=== PATIENT | female | born 1970 | race Caucasian/White ===

== ENCOUNTER → 2018-04-17 08:52 | Outpatient (CLI) | payer OTHER, SELFPAY ==
[2018-04-17 09:31] LABS: Add Manual Diff / Slide Review NO; Basophils Percent Auto 0.1 % (0-2); Hematocrit 44.4 % (36-46); Hemoglobin 15.2 g/dL (12.0-16.0); Mean Corpuscular HGB Conc 34.2 % (30-36); Mean Corpuscular Hemoglobin 29.9 PG (26-34); Mean Corpuscular Volume 87.6 fL (80-100); Monocytes Percent Auto 13.7 % (3-14); Neutrophils Absolute Auto 4000 /uL (3000-5900); Neutrophils Percent Auto 68.2 % (50-75); Platelet Count 266 X10^3/uL (150-400); Red Blood Cell Count 5.07 X10^6/uL (4.0-5.2); Red Cell Distribution Width 13.8 % (11.6-14.8); White Blood Cell Count 5.9 X10^3/uL (4.5-11.0)
[2018-04-17 09:47] LABS: Alanine Aminotransferase 36 IU/L (9-52); Albumin 4.4 g/dL (3.5-5.0); Albumin Globulin Ratio 1.5 (1.0-2.8); Alkaline Phosphatase 41 U/L (38-126); Aspartate Aminotransferase 25 IU/L (14-36); BUN Creatinine Ratio 27.1 (6-22); Bilirubin Total 0.7 mg/dL (0.2-1.3); Blood Urea Nitrogen 19 mg/dL (7-17); Calcium 9.4 mg/dL (8.4-10.2); Carbon Dioxide 28 mmol/L (22-32); Chloride 102 mmol/L (98-107); Cholesterol 205 mg/dL (140-199); Estimated Glomerular Filt Rate > 60.0 mL/min (>60); Globulin 2.9 g/dL (1.7-4.1); Glucose 102 mg/dL (70-100); HDL Cholesterol 68 mg/dL (40-60); HEMOLYSIS 20 (0-50); LDL Cholesterol Calculated 126 mg/dL (<100); Potassium 4.2 mmol/L (3.4-5.1); Sodium 140 mmol/L (137-145); Total Protein 7.3 g/dL (6.3-8.2); Triglycerides 54 mg/dL (35-150)
[2018-04-17 10:16] LABS: Ferritin 19.3 ng/mL (11.1-264)
[2018-04-17 10:46] LABS: Vitamin D 25 Hydroxy (D3) 55.1 ng/mL (30.0-100.0)
[2018-04-17 11:02] LABS: TSH w/ Reflex to FT4 < 0.02 uIU/mL (0.47-4.68)
[2018-04-17 11:29] LABS: Free T4, Direct Thyroxine 1.75 ng/dL (0.78-2.19)
[2018-04-17 13:02] LABS: Free T3, Triiodothyronine Free 4.56 pg/mL (2.77-5.27)
== END ==
PROVIDERS: PCP Internal Medicine; Visit Provider Internal Medicine
DX: Z00.00 Encounter for general adult medical examination without abnormal findings (principal); E03.9 Hypothyroidism, unspecified
CPT/HCPCS: 36415; 80053; 80061; 82306; 82728; 84439; 84443; 84481; 85025

== ENCOUNTER 2019-03-06 09:19 | Day surgery (SDC) | payer OTHER, SELFPAY ==
[2019-03-06 09:48] VITALS: BP 104/76; PULSE 69; RESP 16; TEMP 36.8; O2SAT 99; BMI 26.7
[2019-03-06] MEDS: SODIUM CHLORIDE 0.9% 1,000 ML 200 ML IV (10:01)
--- NOTE | 2019-03-06 10:07 | PM.HP.1 ---
History of Present Illness Date Patient Seen: 03/06/19 Time Patient Seen: 10:07 Chief complaint: [id number] Narrative: 48-year-old woman with family history of colon polyps presents for her 1st ever screening colonoscopy. No intestinal complaints, no family history of colon or rectal cancers. She does report her mother has had multiple colon polyps removed. No family history of IBD. She tolerated her prep well Patient History Family & Social History Social History: household members significant other Tobacco & Substance use: Smoking Status Never smoker Meds Home Medications Medication Instructions Recorded Confirmed Type loratadine [Claritin] 10 mg PO PRN #0 06/21/11 04/30/18 History CHOLECALCIFEROL (VITAMIN D3) 5,000 iu PO #0 10/06/11 04/30/18 History (VITAMIN D) Fluticasone Propionate (FLONASE) 1 spray INTRANASAL PRN #1 bot 11/24/11 04/30/18 Rx cetirizine 10 mg PO PRN #0 04/24/13 04/30/18 History ketoconazole 1 jules TOPICAL SEE INSTRUCTIONS 06/27/17 04/30/18 Rx #120 ml spironolactone [Aldactone] 50 mg PO BID #180 tab 06/27/17 04/30/18 Rx etonogestrel-ethinyl estradiol 1 vaginalrin VAG Q4W #3 each 05/01/18 Rx 0.12 mg -0.015 mg/24 hr vaginal ring citalopram [Celexa] 20 mg PO QDAY #90 tab 06/06/18 Rx levothyroxine 0.175 mg PO QAM #90 tab 06/06/18 Rx liothyronine [Cytomel] 5 mcg PO 0600 #90 tab 06/06/18 Rx Allergies Allergy/AdvReac Type Severity Reaction Status Date / Time clindamycin Allergy Intermediate HIVES Verified 03/06/19 10:02 sulfamethoxazole Allergy Intermediate HIVES Verified 03/06/19 10:02 [From Bactrim] tetracycline Allergy Mild SENSITIVE Verified 03/06/19 10:02 Review of Systems Constitutional Constitutional: Denies fever(s) Eyes Eyes: Denies bulging eyes ENT Ears, Nose, Mouth, and Throat: No lip swelling Cardiovascular Cardiovascular: Denies generalize swelling Respiratory Respiratory: Denies stridor Gastrointestinal Gastrointestinal: Denies coffee ground emesis Musculoskeletal Musculoskeletal: Denies loss of height Integumentary/Breasts Skin/Breast: Denies wounds Neurologic Neurologic: Denies abnormal speech and Denies confusion Psychiatric Psychiatric: Denies confusion Endocrine Endocrine: Denies deepening of the voice Hematologic/Lymphatic Hematologic/Lymphatic: Denies lymphadenopathy Allergic/Immunologic Allergic/Immunologic: Denies lip swelling Exam Vital Signs (past 8 hours): - 03/06/19 09:48 Temperature 98.2 F Pulse Rate 69 Respiratory Rate 16 Blood Pressure 104/76 Pulse Oximetry 99 Oxygen Delivery Method Room Air Const General: cooperative and healthy appearing Orientation: alert HENNJ Head: normal to inspection Nose: nares normal Mouth: oral mucosae normal and lip normal Eyes Eyelids: eyelids normal Conjunctivae: conjunctivae normal Sclera: sclerae normal Neck Neck: supple and other (No thyromegally) Chest Chest: other (LCTAB , regular respiratory effort) Cardio Rhythm: regular rhythm Heart Sounds: S1 normal, S2 normal, no gallops, no murmurs and no rubs GI Other: Abdomen soft nontender nondistended Skin General: no rashes or lesions noted Neuro General: alert and awake Psych Appearance: grossly normal Affect: normal affect Assessment & Plan Assessment & Plan narrative: 48-year-old woman presents for 1st ever screening colonoscopy -family history of colon polyps Risks and benefits discussed Risk including , perforation, hypoxia, missed lesions all discussed Patient ready to proceed All questions answered
[2019-03-06] MEDS: ONDANSETRON 4 MG/2 ML INJ IV (10:24)
[2019-03-06] MEDS: MIDAZOLAM 5 MG/5 ML VIAL IV (10:36)
[2019-03-06] MEDS: fentaNYL 250 MCG/5 ML INJ IV (10:37)
--- NOTE | 2019-03-06 10:55 | PM.OP.ENDO ---
Operative Date/Time/Diagnoses Date of procedure: 03/06/19 Time of procedure: 10:55 Post-op diagnosis: same Procedure & Clinicians Study performed: Complete screening colonoscopy Same procedure as scheduled: Yes Indications: 48-year-old woman with a family history of colon polyps presents for 1st ever screening colonoscopy Surgeon: Sushant Drew Procedure Notes SCOAP/Timeout: completed Procedure in detail: Patient was brought to the endoscopy suite, time-out was completed. She was sedated with a total of 7 mg of midazolam and 100 mcg of fentanyl over the course of her entire procedure. A digital rectal exam was performed there are no masses or polyps identified. 160 cm colonoscope was introduced through the anus and passed through the folds of the rectum and colon to the cecum. The cecum was identified with a prominent robinson's foot and obvious ileocecal valve. Both were photographed. The colonoscope was then slowly withdrawn over the entire course of the colon and rectum visualizing the mucosal surfaces. No lesions were identified. At the distal rectum the colonoscope was retroflexed. There were no lesions here as well. Prep was adequate Pt olerated the procedure well Scope withdrawal time: 16min Sedation minutes: 34 Impression: 1) normal screening colonoscopy 2. Family history of colon polyps Recommendations: Colonscopy in 5 years Plan for aftercare: PACU and then home Follow up: as needed Disposition: PACU
[2019-03-06 10:56] VITALS: BP 126/81; PULSE 64; RESP 13; TEMP 36.1; O2SAT 99
--- NOTE | 2019-03-06 11:00 | P.OP.ENDO_ITS ---
Operative Date/Time/Diagnoses Date of procedure: 03/06/19 Time of procedure: 10:55 Post-op diagnosis: same Procedure & Clinicians Study performed: Complete screening colonoscopy Same procedure as scheduled: Yes Indications: 48-year-old woman with a family history of colon polyps presents for 1st ever screening colonoscopy Surgeon: Sushant Drew Procedure Notes SCOAP/Timeout: completed Procedure in detail: Patient was brought to the endoscopy suite, time-out was completed. She was sedated with a total of 7 mg of midazolam and 100 mcg of fentanyl over the course of her entire procedure. A digital rectal exam was performed there are no masses or polyps identified. 160 cm colonoscope was introduced through the anus and passed through the folds of the rectum and colon to the cecum. The cecum was identified with a prominent assiniboine and sioux's foot and obvious ileocecal valve. Both were photographed. The colonoscope was then slowly withdrawn over the entire course of the colon and rectum visualizing the mucosal surfaces. No lesions were identified. At the distal rectum the colonoscope was retroflexed. There were no lesions here as well. Prep was adequate Pt olerated the procedure well Scope withdrawal time: 16min Sedation minutes: 34 Impression: 1) normal screening colonoscopy 2. Family history of colon polyps Recommendations: Colonscopy in 5 years Plan for aftercare: PACU and then home Follow up: as needed Disposition: PACU
[2019-03-06 11:01] VITALS: BP 113/75; PULSE 60; RESP 10; O2SAT 98
[2019-03-06 11:06] VITALS: BP 110/77; PULSE 60; RESP 15; TEMP 36.7; O2SAT 100
--- NOTE | 2019-03-06 11:09 | SUR.PHASEI ---
pt awake, alert, abdomen soft, tolerating oral juice, vss, pt to phase 2.
[2019-03-06 11:10] VITALS: BP 106/67; PULSE 62; RESP 15; TEMP 36.9; O2SAT 100
[2019-03-06 11:39] VITALS: BP 111/79; PULSE 63; RESP 15; TEMP 36.6; O2SAT 100
== END 2019-03-06 11:42 ==
LOC: ENDO 09:20
PROVIDERS: PCP Internal Medicine; Visit Provider Surgery
PROC: 0DJD8ZZ Inspection of Lower Intestinal Tract, Via Natural or Artificial Opening Endoscopic (ICD-10-PCS; CPT 45378; principal; 2019-03-06 10:45)
DX: Z12.11 Encounter for screening for malignant neoplasm of colon (principal)
CPT/HCPCS: 45378; 99152; 99153; J2250; J2405; J3010

== ENCOUNTER → 2019-06-09 07:37 | Outpatient (CLI) | payer OTHER, SELFPAY ==
--- NOTE | 2019-06-09 | DI.MG.S_ITS ---
BILATERAL DIGITAL SCREENING MAMMOGRAM 3D/2D WITH CAD: 06/09/2019 CLINICAL: Routine screening. Comparison is made to exams dated: 08/17/2017 mammogram, 07/07/2016 mammogram, 06/15/2015 mammogram, 06/06/2011 mammogram, 11/12/2012 mammogram, and 01/29/2014 mammogram - [facility]. There are scattered fibroglandular elements in both breasts. Current study was also evaluated with a Computer Aided Detection (CAD) system. There is a biopsy clip in the right breast. No significant masses, calcifications, or other findings are seen in either breast. There has been no significant interval change. IMPRESSION: NEGATIVE There is no mammographic evidence of malignancy. A 1 year screening mammogram is recommended. This exam was interpreted at Station ID: [id number]. NOTE: For mammograms, a report in lay terms will be sent to the patient. Approximately 15% of breast malignancies will not be visualized mammographically. In the management of a palpable breast mass, a negative mammogram must not discourage biopsy of a clinically suspicious lesion. Electronically Signed By: Mehul osborne/obdulio:06/09/2019 10:36:48 letter sent: Normal Exam ACR BI-RADS Category 1: Negative 3341F
== END ==
PROVIDERS: PCP Internal Medicine; Visit Provider Internal Medicine
DX: Z12.31 Encounter for screening mammogram for malignant neoplasm of breast (principal)
CPT/HCPCS: 77063; 77067

== ENCOUNTER → 2020-06-17 16:14 | Outpatient (CLI) | payer OTHER, SELFPAY ==
--- NOTE | 2020-06-17 16:15 | DI.MG.S_ITS ---
BILATERAL DIGITAL SCREENING MAMMOGRAM 3D/2D WITH CAD: 06/17/2020 CLINICAL: Routine screening. Comparison is made to exams dated: 06/09/2019 mammogram, 08/17/2017 mammogram, and 07/07/2016 mammogram - [facility]. There are scattered fibroglandular elements in both breasts. Current study was also evaluated with a Computer Aided Detection (CAD) system. There is a biopsy clip in the right breast. No significant masses, calcifications, or other findings are seen in either breast. There has been no significant interval change. IMPRESSION: NEGATIVE There is no mammographic evidence of malignancy. A 1 year screening mammogram is recommended. This exam was interpreted at Station ID: [id number]. NOTE: For mammograms, a report in lay terms will be sent to the patient. Approximately 15% of breast malignancies will not be visualized mammographically. In the management of a palpable breast mass, a negative mammogram must not discourage biopsy of a clinically suspicious lesion. Electronically Signed By: Eddie Drummond M.D., jr/obdulio:06/17/2020 17:15:40 letter sent: Normal Exam ACR BI-RADS Category 1: Negative 3341F
== END ==
PROVIDERS: PCP Internal Medicine; Referring Provider Internal Medicine; Visit Provider Internal Medicine
DX: Z12.31 Encounter for screening mammogram for malignant neoplasm of breast (principal)
CPT/HCPCS: 77063; 77067

== ENCOUNTER → 2022-08-14 15:50 | Outpatient (CLI) | payer BC, SELFPAY ==
--- NOTE | 2022-08-14 15:51 | DI.MG.S_ITS ---
BILATERAL DIGITAL SCREENING MAMMOGRAM 3D/2D WITH CAD: 08/14/2022 CLINICAL: Routine screening. Comparison is made to exams dated: 06/17/2020 mammogram, 06/09/2019 mammogram, and 08/17/2017 mammogram - [facility]. There are scattered areas of fibroglandular density in both breasts (category b / 25%-50% glandular tissue). Current study was also evaluated with a Computer Aided Detection (CAD) system. There is a developing oval equal density asymmetry with an obscured margin in the left breast anterior depth superior region seen on the mediolateral oblique view only. No other significant masses, calcifications, or other findings are seen in either breast. IMPRESSION: INCOMPLETE: NEEDS ADDITIONAL IMAGING EVALUATION The developing oval equal density asymmetry in the left breast is indeterminate. Additional views with possible ultrasound are recommended. Based on the Tyrer Cuzick model (a risk assessment model) the patient's lifetime risk is 6.8% and her 10 year risk is 1.9%. According to the ACR, ACS, and NCCN guidelines, an annual breast MRI exam along with mammogram is recommended if the patient's lifetime risk is 20% or greater. This exam was interpreted at Station ID: [id number]. NOTE: For mammograms, a report in lay terms will be sent to the patient. Approximately 15% of breast malignancies will not be visualized mammographically. In the management of a palpable breast mass, a negative mammogram must not discourage biopsy of a clinically suspicious lesion. Electronically Signed By: Kimi zhao/obdulio:08/15/2022 10:18:17 letter sent: Additional Imaging Needed ACR BI-RADS Category 0: Incomplete 3340F
== END ==
PROVIDERS: PCP Internal Medicine; Referring Provider Internal Medicine; Visit Provider Internal Medicine
DX: Z12.31 Encounter for screening mammogram for malignant neoplasm of breast (principal)
CPT/HCPCS: 77063; 77067

== ENCOUNTER → 2022-08-15 13:48 | Outpatient (CLI) | payer BC, SELFPAY ==
--- NOTE | 2022-08-15 | DI.MRI.S_ITS ---
PROCEDURE: MR LUMBAR SPINE WO CON INDICATIONS: Lumbago with sciatica, right side TECHNIQUE: Noncontrast sagittal T1 spin echo and T2 fast echo, sagittal STIR, and T2 fast spin echo through the lumbar spine. In cases with scoliosis, additional coronal T2 fast spin echo may be performed. COMPARISON: None. FINDINGS: Image quality: Excellent. Alignment and Curvature: There is normal bony alignment. Bone Marrow: Marrow is of normal overall signal. There is a focus of decreased T1 and T2 signal in the L4 vertebral body. No priors are available for comparison. No acute vertebral body compression fractures. Spinal Cord: Conus medullaris terminates at the L1 level. Visualized cord demonstrates normal signal and size. Paraspinous Soft Tissues: No paravertebral masses. Discs: Mild desiccation is present throughout the lumbar spine most notable at L4-5. L1-L2: Mild disc bulge with minimal spinal stenosis. No foraminal narrowing. Facet and ligamentum flavum hypertrophy are present. L2-L3: Mild disc bulge with minimal spinal stenosis. No foraminal narrowing. Facet and ligamentum flavum hypertrophy are present. L3-L4: Mild disc bulge with mild spinal stenosis. Minimal to mild bilateral foraminal narrowing, left greater than right with facet and ligamentum flavum hypertrophy. L4-L5: Mild disc bulge with moderate spinal stenosis. Minimal left foraminal narrowing with facet and ligamentum flavum hypertrophy. L5-S1: Mild disc bulge without spinal stenosis or foraminal narrowing. IMPRESSION: Multilevel disc bulges. Moderate spinal stenosis at L4-5 secondary to disc bulge with contributing effect of facet/ligamentum flavum arthropathy. Focus of decreased T1 and T2 signal at the L4 vertebral body overall nonspecific. This could be a lipid poor hemangioma. However, no priors are available for comparison and it is indeterminate on the basis of this exam. Further evaluation with contrast MRI or bone scan/lumbar spine x-ray may be obtained for further evaluation. Dictated by: Sharon Pate M.D. on 08/16/2022 at 17:16 Approved by: Sharon Pate M.D. on 08/16/2022 at 17:20
== END ==
PROVIDERS: PCP Internal Medicine; Referring Provider Internal Medicine; Visit Provider Internal Medicine
DX: M51.16 Intervertebral disc disorders with radiculopathy, lumbar region (principal); M48.061 Spinal stenosis, lumbar region without neurogenic claudication; M47.26 Other spondylosis with radiculopathy, lumbar region
CPT/HCPCS: 72148

== ENCOUNTER → 2022-09-11 13:30 | Outpatient (CLI) | payer BC, SELFPAY ==
--- NOTE | 2022-09-11 13:31 | DI.MG.S_ITS ---
UNILATERAL LEFT DIGITAL DIAGNOSTIC MAMMOGRAM 3D/2D WITH ADDITIONAL VIEWS: 09/11/2022 CLINICAL: Additional evaluation requested from prior study. Comparison is made to exams dated: 08/14/2022 mammogram, 06/17/2020 mammogram, 06/09/2019 mammogram, and 08/17/2017 mammogram - [facility]. There are scattered areas of fibroglandular density in the left breast (category b / 25%-50% glandular tissue). There also is a possible asymmetry in the left breast anterior depth superior region seen on the mediolateral oblique view only. This is less prominent. No other significant masses or calcifications are seen in the breast. IMPRESSION: INCOMPLETE: NEEDS ADDITIONAL IMAGING EVALUATION The possible asymmetry in the left breast anterior depth superior region is indeterminate. A targeted ultrasound is recommended and will immediately follow. Based on the Tyrer Cuzick model (a risk assessment model) the patient's lifetime risk is 6.8% and her 10 year risk is 1.9%. According to the ACR, ACS, and NCCN guidelines, an annual breast MRI exam along with mammogram is recommended if the patient's lifetime risk is 20% or greater. This exam was interpreted at Station ID: [id number]. NOTE: For mammograms, a report in lay terms will be sent to the patient. Approximately 15% of breast malignancies will not be visualized mammographically. In the management of a palpable breast mass, a negative mammogram must not discourage biopsy of a clinically suspicious lesion. Electronically Signed By: Mehul Valdez M.D. slc/:09/11/2022 14:20:55 ACR BI-RADS Category 0: Incomplete 3340F
--- NOTE | 2022-09-11 13:32 | DI.US.S_ITS ---
LIMITED ULTRASOUND OF LEFT BREAST: 09/11/2022 CLINICAL: Patient returns today to evaluate a focal asymmetry in the left breast. Comparison is made to exams dated: 09/11/2022 mammogram, 08/14/2022 mammogram, 06/17/2020 mammogram, 06/09/2019 mammogram, 08/17/2017 mammogram, and 02/20/[address] [facility]. Color flow and real-time ultrasound of the left breast were performed. Grajeda scale images of the real-time examination were reviewed. There is a 0.4 cm simple cyst in the left breast central to the nipple in the retroareolar region 1 cm from the nipple. This correlates as an incidental finding. There also is a 0.6 cm x 0.5 cm x 0.3 cm oval cyst in the left breast at 12 o'clock anterior depth 2 cm from the nipple. This oval cyst displays internal echoes. This correlates with mammography findings. Color flow imaging demonstrates that there is no vascularity present. IMPRESSION: BENIGN There is no sonographic evidence of malignancy. The 0.4 cm simple cyst in the left breast central to the nipple in the retroareolar region is benign. The 0.6 cm circumscribed cyst in the left breast at 12 o'clock anterior depth is benign. A 1 year screening mammogram is recommended. Exam findings were conveyed to the patient. This exam was interpreted at Station ID: [id number]. Electronically Signed By: Mehul Valdez M.D. slc/:09/11/2022 14:48:07 letter sent: Normal Exam Ultrasound BI-RADS: 2 Benign
== END ==
PROVIDERS: PCP Internal Medicine; Referring Provider Internal Medicine; Visit Provider Internal Medicine
DX: R92.8 Other abnormal and inconclusive findings on diagnostic imaging of breast (principal); N60.02 Solitary cyst of left breast
CPT/HCPCS: 76642; 77065; G0279

== ENCOUNTER → 2022-09-18 09:15 | Outpatient (CLI) | payer BC, SELFPAY ==
--- NOTE | 2022-09-18 | DI.NM.S_ITS ---
PROCEDURE: NM BONE SCAN WHOLE BODY RADIOPHARMACEUTICAL: 21.8 mCi Tc-99m MDP IV. INDICATIONS: Hemangioma of other sites TECHNIQUE: Delayed whole-body scintigrams were obtained approximately 3-4 hours after intravenous injection of radiotracer. Anterior and posterior views were acquired from vertex to feet. Additional left and right oblique views of the thoracic and lumbar spine were obtained. COMPARISON: [facility], MR, MR LUMBAR SPINE WO CON, 08/15/2022, 14:04. FINDINGS: No lesions are identified in skull, sternum, clavicles, scapulae, ribs, bony pelvis, and visualized shafts of the long bones. There are foci of increased uptake in cervical, thoracic and lumbar spine most likely secondary to degenerative disc and facet disease; early metastasis to spine could be obscured by degenerative changes. There are foci of increased periarticular activity involving shoulders and hips, compatible with degenerative/arthritic changes. IMPRESSION: 1. No abnormalities in lumbar spine to correlate with findings on MRI. 2. Degenerative changes in spine. 3. Degenerative/arthritic changes in shoulders and hips. Dictated by: Rylan Amaya M.D. on 09/18/2022 at 13:31 Approved by: Rylan Amaya M.D. on 09/18/2022 at 13:57
== END ==
PROVIDERS: PCP Internal Medicine; Referring Provider Internal Medicine; Visit Provider Internal Medicine
DX: D18.09 Hemangioma of other sites (principal); M47.9 Spondylosis, unspecified
CPT/HCPCS: 78306; A9503

== ENCOUNTER → 2022-10-19 14:43 | Outpatient (CLI) | payer BC, SELFPAY ==
--- NOTE | 2022-10-19 14:44 | DI.RAD.S_ITS ---
PROCEDURE: XR LUMBAR SPINE MIN 4V INDICATIONS: BACK PAIN TECHNIQUE: 5 views of the lumbar spine were acquired, including bilateral oblique views. COMPARISON: None. FINDINGS: Bones: 5 nonrib-bearing vertebrae are present. There is normal bony alignment. Degenerative endplate changes are noted throughout lumbar spine most notably at L4-5 and L3-4 levels. No vertebral body compression fractures. No suspicious bony lesions. Soft tissues: Overlying bowel gas pattern is normal. No suspicious soft tissue calcifications. Oblique images: No pars defects. IMPRESSION: Degenerative disc disease throughout lumbar spine. No acute compression fracture or significant spondylolisthesis. No gross pars defects. Dictated by: Haresh Eller M.D. on 10/19/2022 at 15:23 Approved by: Haresh Eller M.D. on 10/19/2022 at 15:24
== END ==
PROVIDERS: PCP Internal Medicine; Referring Provider Physical Medicine & Rehabilitation; Visit Provider Physical Medicine & Rehabilitation
DX: M54.9 Dorsalgia, unspecified (principal); M51.36 Other intervertebral disc degeneration, lumbar region
CPT/HCPCS: 72110

== ENCOUNTER 2023-11-29 10:40 | Day surgery (SDC) | payer BC, SELFPAY ==
[2023-11-29 10:57] VITALS: BP 115/75; PULSE 77; RESP 16; TEMP 36.6; O2SAT 98
--- NOTE | 2023-11-29 11:04 | PM.HP.1 ---
History of Present Illness History of Present Illness Date Patient Seen: 11/29/23 Time Patient Seen: 11:05 Chief complaint: SDC Narrative: Lucia is a 53 year old woman who is here for a colonoscopy. Her last was in 2019 and was normal. She has no family history of colon cancer in a first-degree relative. [facility] Medical History (Updated 11/29/23 @ 11:06 by Evan Valladares MD) Chronic thoracic back pain Facet arthropathy, lumbar Excessive daytime sleepiness Seasonal allergies Chronic back pain (~2005) Vertigo (~2009) Hemorrhoid Mumps (~1968) Measles (~1968) Herpes (~1994) Chicken pox (~1990) Frequent UTI (~1987) Athlete's foot Eczema Acne Hypothyroidism Hyperthyroidism (~2006) Graves disease (~2006) Depression (~1985) Anxiety (~1985) Anemia Irregular menstrual cycle (~2014) Surgical History Anesthesia Status post delivery (~2005) Status post delivery (~2007) History of thyroidectomy (~2007) Family History Brother Age: 52 Mental health problem Autism Bipolar disorder Father Age: 85 Hypertension High cholesterol Bipolar disorder Prostate cancer Skin cancer Heart disease Grandmother Heart disease Stroke Grandfather Heart disease Grandmother Mental health problem Grandfather Cancer Mother Chronic fatigue Chronic pain Son Depression Son Autism ADHD Anxiety Social History household members: significant other Smoking Status: Never smoker alcohol intake: current Meds Home Medications and Allergies Home Medications Medication Instructions Recorded Confirmed Type loratadine 10 mg tablet (Claritin) 10 mg PO PRN ##0 06/21/11 10/25/22 History CHOLECALCIFEROL (VITAMIN D3) 5,000 iu PO DAILY ##0 10/06/11 10/25/22 History (VITAMIN D) Fluticasone Propionate (FLONASE) 1 spray intranasal PRN ##1 11/24/11 09/12/22 Rx cetirizine 10 mg tablet 10 mg PO PRN ##0 04/24/13 11/29/23 History ketoconazole 2 % shampoo 1 jules topical SEE INSTRUCTIONS 06/27/17 10/25/22 Rx #120 mL etonogestrel 0.12 mg-ethinyl 1 vaginalrin vaginal Q4W #3 ea 05/01/18 11/29/23 Rx estradiol 0.015 mg/24 hr vaginal ring (NuvaRing) liothyronine 5 mcg tablet (Cytomel) 5 mcg PO 0600 #90 tabs 06/06/18 11/29/23 Rx cholecalciferol (vitamin D3) 125 125 mcg PO DAILY 10/25/22 10/25/22 History mcg (5,000 unit) capsule citalopram 40 mg tablet 40 mg PO DAILY 10/25/22 11/29/23 History levothyroxine 125 mcg tablet 125 mcg PO DAILY 10/25/22 11/29/23 History melatonin 10 mg tablet 20 mg PO DAILY 10/25/22 10/25/22 History sodium,potassium,mag sulfates 17.5 See Rx Instructions PO .COMPLEX 09/10/23 Rx gram-3.13 gram-1.6 gram oral soln #354 mL (Suprep Bowel Prep Kit) Allergies Allergy/AdvReac Type Severity Reaction Status Date / Time clindamycin Allergy Intermediate HIVES Verified 11/29/23 10:50 sulfamethoxazole Allergy Intermediate HIVES Verified 11/29/23 10:50 [From Bactrim] tetracycline Allergy Mild SENSITIVE Verified 11/29/23 10:50 Exam Vital Signs (past 8 hours): - 11/29/23 10:57 Temperature 98 F Pulse Rate 77 Respiratory Rate 16 Blood Pressure 115/75 Pulse Oximetry 98 Oxygen Delivery Method Room Air Oxygen Delivery Method Room Air Const General: No acute distress Resp Effort & Inspection: normal respiratory effort Assessment & Plan Assessment and plan (1) Colon cancer screening: Status: Acute Plan We reviewed the risks and benefits of colonoscopy for colon cancer screening and she would like to proceed.
--- NOTE | 2023-11-29 11:45 | PM.OP.COLON ---
Operative Date/Time/Diagnoses Date of procedure: 11/29/23 Time of procedure: 11:45 Pre-op diagnosis: Colon cancer screening Post-op diagnosis: same Procedure & Clinicians Study performed: Colonoscopy Same procedure as scheduled: Yes Surgeon: Evan Valladares Procedure Notes Procedure in detail: Surgeon: Evan Valladares MD Anesthesia: Jae Falk DO Procedure: The patient was brought to the endoscopy suite, placed in left lateral decubitus position. The patient was connected to monitoring devices. A time-out was performed. Sedation was administered. Once the patient was adequately sedated, a digital rectal exam was performed and was normal. The scope was then inserted and advanced to the cecum where the appendiceal orifice was identified and photographed. The scope was then slowly withdrawn over greater than 6 minutes. The mucosa was thoroughly inspected. No abnormalities were found. The scope was retroflexed in the rectum. No other abnormalities were seen. The scope was straightened and removed. The patient was awakened and brought to recovery. Scope withdrawal time: 10 minutes Sedation time: 12 minutes EBL: 0 Findings: Normal colon Post-procedure Recommendations: Colonoscopy in 10 years Disposition: PACU
[2023-11-29 11:50] VITALS: BP 113/71; PULSE 76; RESP 16; TEMP 36.3; O2SAT 100
[2023-11-29 11:54] VITALS: BP 113/71; PULSE 74; RESP 16; O2SAT 98
== END 2023-11-29 12:08 | disposition home or self-care (01) ==
PROVIDERS: PCP Internal Medicine; Referring Provider Surgery; Visit Provider Surgery
PROC: 0DJD8ZZ Inspection of Lower Intestinal Tract, Via Natural or Artificial Opening Endoscopic (ICD-10-PCS; CPT 45378; principal; 2023-11-29 11:30)
DX: Z12.11 Encounter for screening for malignant neoplasm of colon (principal)
CPT/HCPCS: 45378

== ENCOUNTER → 2024-04-01 12:58 | Outpatient (CLI) | payer BC, SELFPAY ==
[2024-04-01 13:53] LABS: Add Manual Diff / Slide Review NO; Basophils Absolute Auto 0 /uL (0-100); Basophils Percent Auto 0.1 % (0-2); Eosinophils Absolute Auto 0 /uL (0-450); Hematocrit 42.2 % (36-46); Hemoglobin 14.5 g/dL (12.0-16.0); Lymphocytes Absolute Auto 2100 /uL (1100-4500); Lymphocytes Percent Auto 24.6 % (25-40); Mean Corpuscular HGB Conc 34.3 % (30-36); Mean Corpuscular Hemoglobin 28.7 PG (26-34); Mean Corpuscular Volume 83.7 fL (80-100); Monocytes Absolute Auto 1300 /uL (0-900); Monocytes Percent Auto 15.3 % (3-14); Neutrophils Absolute Auto 5000 /uL (1500-7000); Platelet Count 259 X10^3/uL (150-400); Red Blood Cell Count 5.05 X10^6/uL (4.0-5.2); Red Cell Distribution Width 13.4 % (11.6-14.8); White Blood Cell Count 8.4 X10^3/uL (4.5-11.0)
[2024-04-01 14:10] LABS: Alanine Aminotransferase 15 IU/L (<35); Albumin 4.3 g/dL (3.5-5.0); Albumin Globulin Ratio 1.4 (1.0-2.8); Alkaline Phosphatase 65 U/L (38-126); Aspartate Aminotransferase 20 IU/L (14-36); BUN Creatinine Ratio 15.7 (6-22); Bilirubin Total 0.5 mg/dL (0.2-1.3); Blood Urea Nitrogen 14 mg/dL (7-17); Calcium 9.3 mg/dL (8.4-10.2); Carbon Dioxide 26 mmol/L (22-32); Chloride 104 mmol/L (98-107); Estimated Glomerular Filt Rate > 60 mL/min (>60); Glucose 120 mg/dL (70-100); HEMOLYSIS < 15 (0-50); Potassium 4.6 mmol/L (3.4-5.1); Sodium 136 mmol/L (137-145); Total Protein 7.3 g/dL (6.3-8.2)
== END ==
LOC: LAB 13:00
PROVIDERS: PCP Internal Medicine; Referring Provider Internal Medicine; Visit Provider Internal Medicine
DX: E78.5 Hyperlipidemia, unspecified (principal); E03.9 Hypothyroidism, unspecified
CPT/HCPCS: 36415; 80053; 85025

== ENCOUNTER → 2024-05-21 14:22 | Outpatient (CLI) | payer BC, SELFPAY ==
--- NOTE | 2024-05-21 14:23 | DI.MG.S_ITS ---
BILATERAL DIGITAL SCREENING MAMMOGRAM 3D/2D WITH CAD: 05/21/2024 CLINICAL: Routine screening. Comparison is made to exams dated: 08/14/2022 mammogram, 06/17/2020 mammogram, and 06/09/2019 mammogram - [facility]. There are scattered areas of fibroglandular density in both breasts (category b / 25%-50% glandular tissue). Current study was also evaluated with a Computer Aided Detection (CAD) system. There is a biopsy clip in the right breast. No significant masses, calcifications, or other findings are seen in either breast. There has been no significant interval change. IMPRESSION: BENIGN There is no mammographic evidence of malignancy. A 1 year screening mammogram is recommended. Based on the Tyrer Cuzick model (a risk assessment model) the patient's lifetime risk is 10.7% and her 10 year risk is 3.5%. According to the ACR, ACS, and NCCN guidelines, an annual breast MRI exam along with mammogram is recommended if the patient's lifetime risk is 20% or greater. This exam was interpreted at Station ID: [id number]. NOTE: For mammograms, a report in lay terms will be sent to the patient. Approximately 15% of breast malignancies will not be visualized mammographically. In the management of a palpable breast mass, a negative mammogram must not discourage biopsy of a clinically suspicious lesion. Electronically Signed By: Rhianna Alvarado M.D., Ph.D. petar/obdulio:05/22/2024 17:07:23 letter sent: Normal Exam ACR BI-RADS Category 2: Benign Finding(s) 3342F
== END ==
PROVIDERS: PCP Internal Medicine; Referring Provider Internal Medicine; Visit Provider Internal Medicine
DX: Z12.31 Encounter for screening mammogram for malignant neoplasm of breast (principal); R92.323 Mammographic fibroglandular density, bilateral breasts
CPT/HCPCS: 77063; 77067

== ENCOUNTER → 2025-03-06 12:12 | Outpatient (CLI) | payer BC, SELFPAY ==
--- NOTE | 2025-03-06 12:13 | DI.RAD.S_ITS ---
PROCEDURE: XR DEXA AXIAL SKELETON INDICATIONS: Osteoporosis screening COMPARISON: None. FINDINGS: Lumbar Spine: Bone mineral density 1.307 g/cm2, T score 2.4. Left Femoral Neck: Bone mineral density 0.933 g/cm2, T score 0.8. Left Hip: Bone mineral density 1.090 g/cm2, T score 1.2. Fracture Risk Calculation (when applicable): 10-year fracture risk of a major osteoporotic fracture 4.9 percent and of a hip fracture 0.1 percent. (T score greater or equal to -1.0 to: NORMAL) (T score from -1.1 to -2.4: OSTEOPENIA) (T score less than or equal to -2.5: OSTEOPOROSIS) IMPRESSION: Normal--- recommend repeat DEXA as clinically indicated. Follow-up guidelines as follows: Osteoporosis: Consider a repeat DEXA and Vertebral Fracture Assessment (VFA) exam in 2 years or sooner if medically necessary, to reassess this patient's status. Osteopenia: Consider a repeat DEXA in 2-3 years to reassess this patient's status, or if there is a new clinical indication. Normal: Consider a repeat DEXA in 5 years or sooner, or if there is a new clinical indication. All treatment decisions require clinical judgment and consideration of individual patient factors, including patient preferences, comorbidities, previous drug use, risk factors not captured in the FRAX model (e.g., frailty, falls, vitamin D deficiency, increased bone turnover, interval significant decline in bone density ) and possible under- or over-estimation of fracture risk by FRAX. In addition, the NOF Guide recommends that FDA-approved medical therapies be considered in postmenopausal women and men age >= 50 years with a: * Hip or vertebral (clinical or morphometric) fracture * T-score of <=-2.5 at the spine or hip * Ten-year fracture probability by FRAX of >= 3% for hip fracture or >=20% for major osteoporotic fracture. Dictated by: Gasper Farley M.D. on 03/06/2025 at 18:47 Approved by: Gasper Farley M.D. on 03/06/2025 at 19:04
== END ==
LOC: RAD 12:12
PROVIDERS: PCP Registered Nurse; Referring Provider Registered Nurse; Visit Provider Registered Nurse
DX: Z13.820 Encounter for screening for osteoporosis (principal); Z78.0 Asymptomatic menopausal state
CPT/HCPCS: 77080

== ENCOUNTER → 2025-07-06 13:24 | Outpatient (CLI) | payer BC, SELFPAY ==
--- NOTE | 2025-07-06 13:26 | DI.US.S_ITS ---
MM diagnostic mammo unilat LT, US breast LT limited: 07/06/2025 BI-RADS: 2 CLINICAL: 55-year old female for left diagnostic mammogram and left diagnostic breast ultrasound that is a recall from screening on 05/23/2025. Tyrer-Cuzick lifetime risk of 12.1%. No personal or first-degree family history of breast cancer. The patient had a prior right breast biopsy. PRIOR EXAMS 05/23/2025, 05/21/2024, 09/11/2022, 08/14/2022, 06/17/2020. MAMMOGRAPHY TECHNIQUE: 2D and 3D (tomosynthesis) digital mammographic views obtained, with additional images as needed for full coverage. Current study was also evaluated with a Computer Aided Detection (CAD) system. ULTRASOUND TECHNIQUE: Real-time montelongo scale and color doppler imaging of the area of clinical interest was performed with image documentation. TARGETED Left Breast Ultrasound: Real-time ultrasound exam was performed focused to area of clinical and/or imaging concern. DENSITY Left: B. There are scattered areas of fibroglandular density. MAMMOGRAPHY FINDINGS Left (finding-1): Lower at 6:00, Anterior depth, measuring 0.6cm: Correlating with findings on screening mammogram there is a circumscribed, oval, equal-density mass present. ULTRASOUND FINDINGS Left (finding-1): Lower at 6:00, 3 cm from nipple, measuring 0.7 x 0.4 x 0.5 cm: Correlating with findings on mammogram there is a complicated cyst present. Doppler shows no vascularity. IMPRESSION: Left * No evidence of malignancy with benign findings. RECOMMENDATIONS Bilateral * Annual screening mammography. COMMENTS: Findings and recommendations were conveyed to the patient during today's evaluation. OVERALL ASSESSMENT CATEGORY BI-RADS-2: Benign. The [employer] recommends annual screening mammography beginning at age 40 for women with average risk of breast cancer. ELECTRONICALLY SIGNED: Latrice Andino M.D. on 07/06/2025 at 02:37:08 PM PT Interpreting Station ID: [id number]
== END ==
LOC: MAMMO 13:25
PROVIDERS: PCP Registered Nurse; Referring Provider Registered Nurse; Visit Provider Registered Nurse
DX: R92.8 Other abnormal and inconclusive findings on diagnostic imaging of breast (principal); N60.02 Solitary cyst of left breast
CPT/HCPCS: 76642; 77065; G0279